=== PATIENT | male | born 1995 | race African-American/Black ===

== ENCOUNTER 2023-10-25 20:00 | Emergency (ER) | payer OTHER, BC, SELFPAY ==
[2023-10-25 20:01] VITALS: BP 151/81; PULSE 99; RESP 15; TEMP 37; O2SAT 99
[2023-10-25 22:19] VITALS: BP 132/76; PULSE 61; RESP 15; O2SAT 100
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
== END 2023-10-25 22:20 | disposition home or self-care (01) ==
PROVIDERS: Emergency Provider Physician Assistant
DX: Z04.1 Encounter for examination and observation following transport accident (principal); V43.52XA Car driver injured in collision with other type car in traffic accident, initial encounter
CPT/HCPCS: 99283